=== PATIENT | female | born 1985 | race Caucasian/White ===

== ENCOUNTER 2017-11-01 22:03 | Emergency (ER) | payer OTHER ==
[~2017-11-01] VITALS: Ht 172.7 cm; Wt 85.0 kg
[2017-11-01 22:47] LABS: URINE BILIRUBIN - DIPSTICK NEGATIVE (NEGATIVE); URINE BLOOD DIPSTICK NEGATIVE (NEGATIVE); URINE COLOR YELLOW; URINE GLUCOSE - DIPSTICK NEGATIVE (NEGATIVE); URINE KETONE NEGATIVE (NEGATIVE); URINE NITRITE - DIPSTICK NEGATIVE (Negative); URINE PROTEIN - DIPSTICK NEGATIVE (NEG-TRACE); URINE SPECIFIC GRAVITY 1.025; URINE UROBILINOGEN - DIPSTICK 0.2 E.U./dL (0.2)
[2017-11-01 22:48] LABS: URINE CLARITY SL CLOUDY; URINE LEUK ESTERASE SMALL (NEGATIVE)
[2017-11-01 22:50] LABS: HEMATOCRIT 39.6 % (37.0-47.0); HEMOGLOBIN 13.2 g/dl (12.0-16.0); IMMATURE GRANULOCYTES 0.4 % (0.0-1.0); MEAN CORPUSCULAR HGB 29.7 pG CALC (26.0-32.0); MEAN CORPUSCULAR HGB CONC 33.3 g/L CALC (32.0-36.0); NEUT# 4.04 thou/uL (2.00-7.15); RED BLOOD COUNT 4.45 mill/uL (4.20-5.60); RED CELL DISTRI WIDTH 13.9 % (11.5-15.5)
[2017-11-01 22:52] LABS: BARBITURATES NEGATIVE (NEGATIVE); COCAINE NEGATIVE (NEGATIVE); METHADONE NEGATIVE (NEGATIVE); OXCYCODONE NEGATIVE (NEGATIVE); TETRAHYDROCANNABIONOL POSITIVE (NEGATIVE); TRICYLIC ANTIDEPRESSANTS NEGATIVE (NEGATIVE)
[2017-11-01 22:53] LABS: URINE BACTERIA FEW hpf; URINE MUCUS FEW hpf (NONE-FEW); URINE RBC 0-2 RBC/hpf (0-5); URINE SQUAMOUS EPITHELIAL CELL MODERATE EPI/hpf (0-FEW)
[2017-11-01 23:02] LABS: ALBUMIN 4.3 g/dL (3.2-5.0); ALKALINE PHOSPHATASE 78 u/l (38-126); ANION GAP 17 (6-22 (CALC)); BILIRUBIN, TOTAL 0.2 mg/dL (0.0-1.4); BUN 16 mg/dL (7-17); BUN/CREATININE RATIO 19 (12-20 (CALC)); CARBON DIOXIDE 23 mmol/l (22-30); CHLORIDE 107 mmol/l (95-108); CREATININE 0.9 mg/dL (0.5-1.0); GFR > 60 ML/MIN (>=60 (CALC)); GFR FOR AFR.AMER. > 60 ML/MIN (>=60 (CALC)); LIPASE 116 u/l (23-300); SGOT/AST 33 u/l (14-36); SGPT/ALT 64 u/l (9-52); SODIUM 144 mmol/l (137-146); TOTAL PROTEIN 7.6 g/dL (6.3-8.2)
[2017-11-01] MEDS ORDERED: PROTONIX40 MG PO (23:12)
[2017-11-01] MEDS ORDERED: TORADOL PO (23:12)
[2017-11-01] MEDS ORDERED: BACTRIM DS1 TAB PO (23:12)
[2017-11-01 23:53] VITALS: BP 156/91
== END 2017-11-02 00:01 | disposition home or self-care (01) | DRG 392 ==
LOC: ED 22:03
PROVIDERS: Emergency Medicine
DX: R10.11 Right upper quadrant pain (principal); N39.0 Urinary tract infection, site not specified; F17.210 Nicotine dependence, cigarettes, uncomplicated; R11.10 Vomiting, unspecified

== ENCOUNTER 2020-02-06 16:11 | Emergency (ER) | payer MEDICAID ==
[~2020-02-06] VITALS: Ht 172.7 cm; Wt 72.7 kg
[~2020-02-06 16:11] MED LIST: BACTRIM DS1 TAB PO; PROTONIX40 MG PO; TORADOL PO
[2020-02-06] MEDS ORDERED: ACYCLOVIR200 MG PO (17:02)
[2020-02-06] MEDS ORDERED: CYCLOBENZAPR5 MG PO (19:02)
[2020-02-06 19:16] VITALS: BP 151/85
== END 2020-02-06 19:16 | disposition home or self-care (01) ==
LOC: ED 16:11
DX: M26.602 Left temporomandibular joint disorder, unspecified (principal); F17.210 Nicotine dependence, cigarettes, uncomplicated

== ENCOUNTER 2021-02-18 09:39 | Emergency (ER) | payer MEDICAID ==
[~2021-02-18 09:39] MED LIST changes: +ACYCLOVIR200 MG PO; +CYCLOBENZAPR5 MG PO
[2021-02-18 11:22] VITALS: BP 110/70
== END 2021-02-18 11:22 | disposition home or self-care (01) ==
LOC: ED 09:39
DX: U07.1 COVID-19 (principal); F41.9 Anxiety disorder, unspecified; F17.210 Nicotine dependence, cigarettes, uncomplicated